=== PATIENT | female | born 1985 | race Caucasian/White ===

== ENCOUNTER 2017-03-11 13:46 | Emergency (ER) | payer OTHER ==
[2017-03-11 14:11] VITALS: BP 123/88; PULSE 71; RESP 16; TEMP 97.9; O2SAT 94
--- NOTE | 2017-03-11 15:23 | EDPHY ---
H & P Time Seen by Provider: 03/11/17 15:01 HPI/ROS: CHIEF COMPLAINT: Inhaled bleach HISTORY OF PRESENT ILLNESS: Patient is a 32-year-old female who presents emergency department after inhaling bleach. The patient states she was cleaning out her closet yesterday. She was concerned because they were mice and wrote fecal matter in the space. She sprayed it with household bleach. She inhaled some of the bleach and noticed a mild burning. She still feels some mild burning in her esophagus and lungs. She has mild shortness of breath. No cough. No hemoptysis. No fevers or chills. No complaints of diaphoresis or rash REVIEW OF SYSTEMS: My complete review of systems is negative except as mentioned in the HPI. Past Medical/Surgical History: Negative Past surgical history: Multiple Orthopedic surgeries Social History: The patient does not smoke Smoking Status: Unknown if ever smoked Physical Exam: Vitals noted. Afebrile 36.6. O2 saturation 94%. GENERAL: Well-appearing, in no acute distress, alert. HEENT: Eyes normal to inspection, normal pharynx, no signs of dehydration. No lesions or other abnormality and her pharynx her throat. NECK: No thyromegaly, no lymphadenopathy, supple. No stridor RESPIRATORY: Clear to auscultation bilaterally, no rales, rhonchi or wheezing. Normal. No accessary muscle use. CVS: Regular rate and rhythm, no rubs, murmurs, or gallops. ABDOMEN: Soft, nontender, nondistended, no organomegaly. BACK: Normal to inspection, no CVA tenderness. SKIN: Normal color, no rash, warm, dry. No pallor. EXTREMITIES: No pedal edema, no calf tenderness, no Homans sign or cords, no joint swelling. NEURO/PSYCH: Alert and oriented x3, normal mood and affect, normal motor sensory exam. Constitutional: Initial Vital Signs Temperature (C) 36.6 C 03/11/17 14:07 Heart Rate 71 03/11/17 14:07 Respiratory Rate 16 03/11/17 14:07 Blood Pressure 123/88 H 03/11/17 14:07 O2 Sat (%) 94 03/11/17 14:07 O2 Delivery Mode Room Air Medical Decision Making ED Course/Re-evaluation: In the emergency department I discussed exposure to inhaler bleed. At this time I do not feel she needs imaging or specific treatment. She has no signs of wheezing or reactive airway disease on exam. I did note that her oxygen saturation was 94%. However, I do not feel CT imaging or chest x-ray is needed at this time. If her symptoms worsen I would recommend imaging. I discussed this at length with the patient. I also considered exposure to rodent borne diseases such as Tuleremia and Hanta virus. I do not feel she needs prophylactic antibiotics at this time. If she does worsen (and she was given warnings) she will return to the emergency department Differential Diagnosis: My differential includes but is not limited to inhale Fleet's exposure, reactive airway disease, pulmonary hemorrhage, Hanta virus, Tuleremia, plague Departure - Departure Disposition: Home, Routine, Self-Care Clinical Impression: Accidental exposure to bleach Condition: Good Instructions: Reactive Airways Disease (ED) Additional Instructions: Return with increasing chest pain, shortness of breath, fever, chills, sweating , rash any other concerns. Referrals: Luz Liu MD [Medical Doctor] - 3-4 days, if not improved
== END 2017-03-11 15:50 | disposition home or self-care (01) ==
DX: T54.3X1A Toxic effect of corrosive alkalis and alkali-like substances, accidental (unintentional), initial encounter (principal)